=== PATIENT | male | born 1945 | race Caucasian/White ===

== ENCOUNTER 2021-09-14 16:11 | Inpatient (IN) ==
[2021-09-14] MEDS ORDERED: Dextrose 4 GM Chewable Tablets PO PRN ×2 (16:15)
[2021-09-14] MEDS ORDERED: *HR* Dextrose 50 % in Water (Syg) 50 ML SYRINGE IVP PRN (16:15)
[2021-09-14] MEDS ORDERED: D5% in Water 1,000 ML IVC PRN (16:15)
[2021-09-14] MEDS ORDERED: Diphenoxylate/Atropine 1 TAB TABLET PO PRN (16:16)
[2021-09-14] MEDS: *HR* HYDROcodone/Acet 5/325 mg TABLET PO PRN (21:31)
[2021-09-14] MEDS: Sennosides/Docusate Sodium TABLET PO SCH (21:31)
[2021-09-14] MEDS: Insulin LISPRO 300 UNITS/3 ML VIAL SUBQ SCH ×2 (21:32→21:51)
[2021-09-14] MEDS: Budesonide/Formoterol 160/4.5 1 PUFF INH IH SCH (23:07)
[2021-09-15] MEDS: Ondansetron ODT 4 MG TAB.RAPDIS SL PRN (06:12)
[2021-09-15] MEDS: Insulin LISPRO 300 UNITS/3 ML VIAL SUBQ SCH ×4 (07:29→21:25)
[2021-09-15 07:45] LABS: Basophils # 0.1 K/mcL (0.0-0.2); Basophils % 0.4 %; Eosinophils # 0.4 K/mcL (0.0-0.6); Eosinophils % 2.6 %; Hemoglobin 7.7 g/dL (12.9-16.9); Immature Granulocytes % 2.6 % (0-4); Lymphocytes # 0.9 K/mcL (0.6-4.6); Lymphocytes % 6.8 %; Mean Corpuscular HGB Conc 30.8 g/dL (31.6-35.5); Mean Corpuscular Hemoglobin 29.2 pg (28.0-33.3); Mean Corpuscular Volume 94.7 fL (83.0-100.0); Mean Platelet Volume 10.9 fL (9.4-12.4); Monocytes # 2.4 K/mcL (0.0-1.3); Monocytes % 17.8 %; Neutrophils # 9.5 K/mcL (1.6-8.9); Platelet Count 229 K/mcL (140-400); Red Blood Count 2.64 M/mcL (4.19-5.50); Red Cell Distribution Width 15.2 % (11.5-14.5); Segmented Neutrophils % 69.8 %; White Blood Count 13.6 K/mcL (4.3-11.1)
[2021-09-15 08:01] LABS: Calcium 8.2 mg/dL (8.6-10.3); Potassium 3.7 mEq/L (3.5-5.1)
[2021-09-15] MEDS: Ascorbic Acid 500 MG TABLET PO SCH (09:23)
[2021-09-15] MEDS: Lactobacillus 1 EACH CAP.SPRINK PO SCH (09:23)
[2021-09-15] MEDS: Sennosides/Docusate Sodium TABLET PO SCH ×2 (09:23→21:25)
[2021-09-15] MEDS: Furosemide 40 MG TABLET PO SCH (09:23)
[2021-09-15] MEDS: Budesonide/Formoterol 160/4.5 1 PUFF INH IH SCH ×2 (09:39→23:26)
[2021-09-15] MEDS: *HR* HYDROcodone/Acet 5/325 mg TABLET PO PRN ×2 (17:54→23:49)
[2021-09-16] MEDS: Acetaminophen 325 MG TABLET PO PRN (03:08)
[2021-09-16] MEDS: *HR* HYDROcodone/Acet 5/325 mg TABLET PO PRN ×3 (06:19→21:51)
[2021-09-16] MEDS: Insulin LISPRO 300 UNITS/3 ML VIAL SUBQ SCH ×4 (07:33→21:59)
[2021-09-16] MEDS: Sennosides/Docusate Sodium TABLET PO SCH ×2 (08:07→20:21)
[2021-09-16] MEDS: Lactobacillus 1 EACH CAP.SPRINK PO SCH (08:07)
[2021-09-16] MEDS: Ascorbic Acid 500 MG TABLET PO SCH (08:08)
[2021-09-16] MEDS: Furosemide 40 MG TABLET PO SCH (08:08)
[2021-09-16] MEDS: Budesonide/Formoterol 160/4.5 1 PUFF INH IH SCH ×2 (08:39→22:24)
[2021-09-17] MEDS: Acetaminophen 325 MG TABLET PO PRN ×3 (00:40→14:18)
[2021-09-17] MEDS: *HR* HYDROcodone/Acet 5/325 mg TABLET PO PRN ×3 (04:08→17:03)
[2021-09-17] MEDS: Ascorbic Acid 500 MG TABLET PO SCH (07:37)
[2021-09-17] MEDS: Sennosides/Docusate Sodium TABLET PO SCH ×2 (07:37→20:00)
[2021-09-17] MEDS: Lactobacillus 1 EACH CAP.SPRINK PO SCH (07:37)
[2021-09-17] MEDS: Furosemide 40 MG TABLET PO SCH (07:37)
[2021-09-17] MEDS: Insulin LISPRO 300 UNITS/3 ML VIAL SUBQ SCH ×4 (07:38→20:00)
[2021-09-17] MEDS: Ondansetron ODT 4 MG TAB.RAPDIS SL PRN (09:44)
[2021-09-17] MEDS: Budesonide/Formoterol 160/4.5 1 PUFF INH IH SCH ×2 (10:17→22:36)
[2021-09-17] MEDS: Melatonin 3 MG TABLET PO PRN (20:12)
[2021-09-18] MEDS: *HR* HYDROcodone/Acet 5/325 mg TABLET PO PRN ×2 (05:35→15:45)
[2021-09-18] MEDS: Insulin LISPRO 300 UNITS/3 ML VIAL SUBQ SCH ×4 (07:41→20:17)
[2021-09-18 07:52] LABS: Hematocrit 22.8 % (37.5-50.1); Hemoglobin 6.8 g/dL (12.9-16.9); Mean Corpuscular HGB Conc 29.8 g/dL (31.6-35.5); Mean Corpuscular Hemoglobin 28.9 pg (28.0-33.3); Mean Platelet Volume 10.3 fL (9.4-12.4); Platelet Count 224 K/mcL (140-400); Red Blood Count 2.35 M/mcL (4.19-5.50); Red Cell Distribution Width 15.2 % (11.5-14.5); White Blood Count 11.6 K/mcL (4.3-11.1)
[2021-09-18 07:53] LABS: Calcium 8.2 mg/dL (8.6-10.3); Potassium 3.3 mEq/L (3.5-5.1)
[2021-09-18] MEDS ORDERED: Potassium Chloride Elixir 20 MEQ/15 ML UDC PO ONE (08:23)
[2021-09-18] MEDS ORDERED: 0.9 % Sodium Chloride 250 ML IVC SCH (08:30)
[2021-09-18] MEDS: Gabapentin 100 MG CAPSULE PO SCH ×3 (08:53→20:16)
[2021-09-18] MEDS: Ascorbic Acid 500 MG TABLET PO SCH (08:53)
[2021-09-18] MEDS: Lactobacillus 1 EACH CAP.SPRINK PO SCH (08:53)
[2021-09-18] MEDS: Nystatin SUSP 5 ML UD.LIQ PO SCH ×4 (08:54→20:16)
[2021-09-18] MEDS: Furosemide 40 MG TABLET PO SCH (09:00)
[2021-09-18] MEDS: Sennosides/Docusate Sodium TABLET PO SCH ×2 (09:02→20:16)
[2021-09-18] MEDS: Budesonide/Formoterol 160/4.5 1 PUFF INH IH SCH ×2 (09:49→22:35)
[2021-09-19 07:17] LABS: Basophils # 0.1 K/mcL (0.0-0.2); Eosinophils # 0.3 K/mcL (0.0-0.6); Eosinophils % 2.7 %; Hematocrit 27.1 % (37.5-50.1); Hemoglobin 8.2 g/dL (12.9-16.9); Immature Granulocytes % 1.7 % (0-4); Lymphocytes # 0.8 K/mcL (0.6-4.6); Lymphocytes % 7.6 %; Mean Corpuscular HGB Conc 30.3 g/dL (31.6-35.5); Mean Corpuscular Volume 95.8 fL (83.0-100.0); Mean Platelet Volume 10.2 fL (9.4-12.4); Monocytes # 2.5 K/mcL (0.0-1.3); Monocytes % 23.8 %; Neutrophils # 6.7 K/mcL (1.6-8.9); Platelet Count 246 K/mcL (140-400); Red Blood Count 2.83 M/mcL (4.19-5.50); Red Cell Distribution Width 15.8 % (11.5-14.5); Segmented Neutrophils % 63.2 %; White Blood Count 10.5 K/mcL (4.3-11.1)
[2021-09-19] MEDS: Ascorbic Acid 500 MG TABLET PO SCH (08:21)
[2021-09-19] MEDS: Acetaminophen 325 MG TABLET PO PRN (08:22)
[2021-09-19] MEDS: Sennosides/Docusate Sodium TABLET PO SCH ×2 (08:22→20:14)
[2021-09-19] MEDS: Furosemide 40 MG TABLET PO SCH (08:22)
[2021-09-19] MEDS: Gabapentin 100 MG CAPSULE PO SCH ×3 (08:23→20:13)
[2021-09-19] MEDS: Insulin LISPRO 300 UNITS/3 ML VIAL SUBQ SCH (08:23)
[2021-09-19] MEDS: Lactobacillus 1 EACH CAP.SPRINK PO SCH (08:23)
[2021-09-19 09:06] LABS: Platelet Estimate Normal (Normal)
[2021-09-19] MEDS: Budesonide/Formoterol 160/4.5 1 PUFF INH IH SCH ×2 (09:22→21:46)
[2021-09-19] MEDS: Nystatin SUSP 5 ML UD.LIQ PO SCH ×4 (11:41→20:15)
[2021-09-19] MEDS: Melatonin 3 MG TABLET PO PRN (20:13)
[2021-09-19] MEDS: *HR* HYDROcodone/Acet 5/325 mg TABLET PO PRN (20:14)
[2021-09-20 07:34] LABS: Basophils # 0.1 K/mcL (0.0-0.2); Basophils % 1.1 %; Eosinophils # 0.3 K/mcL (0.0-0.6); Eosinophils % 2.3 %; Hematocrit 26.2 % (37.5-50.1); Immature Granulocytes % 1.8 % (0-4); Lymphocytes # 0.9 K/mcL (0.6-4.6); Lymphocytes % 8.7 %; Mean Corpuscular HGB Conc 30.5 g/dL (31.6-35.5); Mean Corpuscular Hemoglobin 29.5 pg (28.0-33.3); Mean Corpuscular Volume 96.7 fL (83.0-100.0); Mean Platelet Volume 10.2 fL (9.4-12.4); Monocytes # 2.2 K/mcL (0.0-1.3); Monocytes % 20.4 %; Neutrophils # 7.1 K/mcL (1.6-8.9); Platelet Count 252 K/mcL (140-400); Red Blood Count 2.71 M/mcL (4.19-5.50); Red Cell Distribution Width 15.5 % (11.5-14.5); Segmented Neutrophils % 65.7 %; White Blood Count 10.8 K/mcL (4.3-11.1)
[2021-09-20 07:55] LABS: Calcium 8.2 mg/dL (8.6-10.3); Potassium 3.4 mEq/L (3.5-5.1)
[2021-09-20 08:23] LABS: Platelet Estimate Normal (Normal)
[2021-09-20] MEDS: Lactobacillus 1 EACH CAP.SPRINK PO SCH (09:35)
[2021-09-20] MEDS: Sennosides/Docusate Sodium TABLET PO SCH ×2 (09:35→20:40)
[2021-09-20] MEDS: Ascorbic Acid 500 MG TABLET PO SCH (09:35)
[2021-09-20] MEDS: Gabapentin 100 MG CAPSULE PO SCH ×3 (09:35→20:40)
[2021-09-20] MEDS: Furosemide 40 MG TABLET PO SCH (09:35)
[2021-09-20] MEDS: Nystatin SUSP 5 ML UD.LIQ PO SCH ×4 (09:36→20:40)
[2021-09-20] MEDS: *HR* HYDROcodone/Acet 5/325 mg TABLET PO PRN ×2 (09:45→22:13)
[2021-09-20] MEDS: Budesonide/Formoterol 160/4.5 1 PUFF INH IH SCH ×2 (09:52→21:27)
[2021-09-20] MEDS ORDERED: 0.9 % Sodium Chloride 250 ML IVC SCH (15:15)
[2021-09-20] MEDS: Acetaminophen 325 MG TABLET PO PRN (16:22)
[2021-09-20] MEDS ORDERED: Furosemide 20 MG/2 ML VIAL IVP PRN (17:00)
[2021-09-21 06:36] LABS: Hemoglobin 8.6 g/dL (12.9-16.9); Mean Corpuscular HGB Conc 30.7 g/dL (31.6-35.5); Mean Corpuscular Hemoglobin 29.6 pg (28.0-33.3); Mean Corpuscular Volume 96.2 fL (83.0-100.0); Mean Platelet Volume 10.3 fL (9.4-12.4); Platelet Count 267 K/mcL (140-400); Red Blood Count 2.91 M/mcL (4.19-5.50); Red Cell Distribution Width 15.6 % (11.5-14.5); White Blood Count 11.4 K/mcL (4.3-11.1)
[2021-09-21 06:59] LABS: Calcium 8.1 mg/dL (8.6-10.3); Potassium 3.6 mEq/L (3.5-5.1)
[2021-09-21] MEDS: Sennosides/Docusate Sodium TABLET PO SCH ×2 (08:51→20:31)
[2021-09-21] MEDS: Nystatin SUSP 5 ML UD.LIQ PO SCH ×4 (08:51→20:31)
[2021-09-21] MEDS: Ascorbic Acid 500 MG TABLET PO SCH (08:52)
[2021-09-21] MEDS: Lactobacillus 1 EACH CAP.SPRINK PO SCH (08:52)
[2021-09-21] MEDS: Furosemide 40 MG TABLET PO SCH (08:52)
[2021-09-21] MEDS: Gabapentin 100 MG CAPSULE PO SCH ×3 (08:52→20:31)
[2021-09-21] MEDS: *HR* HYDROcodone/Acet 5/325 mg TABLET PO PRN (08:53)
[2021-09-21] MEDS: Budesonide/Formoterol 160/4.5 1 PUFF INH IH SCH ×2 (10:14→22:36)
[2021-09-21 11:47] LABS: Bilirubin,Urine Negative (Negative); Blood,Urine Moderate (Negative); Clarity,Urine Cloudy (Clear); Color,Urine Yellow (Yellow); Glucose,Urine (UA) 100 mg/dL (Normal); Ketones,Urine Negative (Negative); Leukocyte Esterase,Urine Large (Negative); Nitrite,Urine Negative (Negative); Protein,Urine 100 mg/dL (Neg-Trace); Urobilinogen,Urine Normal (Normal)
[2021-09-21 11:54] LABS: Bacteria,Urine Few per hpf (None-Few); WBC,Urine 15-30 per hpf (0-3)
[2021-09-21] MEDS: polyethylene glycoL 3350 17 GM POWD.PACK PO SCH (15:17)
[2021-09-21] MEDS: cefTRIAXone 1,000 MG in 0.9 % Sodium Chloride 10 ML IVP SCH ×2 (15:20→16:59)
[2021-09-21] MEDS: *HR* OxyCODONE/APAP 7.5/325 TABLET PO PRN (18:34)
[2021-09-21 20:24] LABS: Basophils # 0.1 K/mcL (0.0-0.2); Basophils % 0.8 %; Eosinophils # 0.3 K/mcL (0.0-0.6); Hematocrit 28.5 % (37.5-50.1); Hemoglobin 8.7 g/dL (12.9-16.9); Immature Granulocytes % 1.4 % (0-4); Lymphocytes # 0.6 K/mcL (0.6-4.6); Mean Corpuscular HGB Conc 30.5 g/dL (31.6-35.5); Mean Corpuscular Hemoglobin 29.2 pg (28.0-33.3); Mean Corpuscular Volume 95.6 fL (83.0-100.0); Mean Platelet Volume 9.9 fL (9.4-12.4); Monocytes # 0.9 K/mcL (0.0-1.3); Monocytes % 9.8 %; Neutrophils # 7.4 K/mcL (1.6-8.9); Platelet Count 247 K/mcL (140-400); Red Blood Count 2.98 M/mcL (4.19-5.50); Red Cell Distribution Width 15.3 % (11.5-14.5); White Blood Count 9.3 K/mcL (4.3-11.1)
[2021-09-22] MEDS: polyethylene glycoL 3350 17 GM POWD.PACK PO SCH ×2 (09:02→10:02)
[2021-09-22] MEDS: cefTRIAXone 1,000 MG in 0.9 % Sodium Chloride 10 ML IVP SCH (09:03)
[2021-09-22] MEDS: *HR* OxyCODONE/APAP 7.5/325 TABLET PO PRN ×2 (09:04→20:28)
[2021-09-22] MEDS: Lactobacillus 1 EACH CAP.SPRINK PO SCH (09:04)
[2021-09-22] MEDS: Sennosides/Docusate Sodium TABLET PO SCH ×2 (09:04→20:29)
[2021-09-22] MEDS: Nystatin SUSP 5 ML UD.LIQ PO SCH ×4 (09:04→20:29)
[2021-09-22] MEDS: Gabapentin 100 MG CAPSULE PO SCH ×3 (09:04→20:28)
[2021-09-22] MEDS: Furosemide 40 MG TABLET PO SCH (09:04)
[2021-09-22] MEDS: Ascorbic Acid 500 MG TABLET PO SCH (09:05)
[2021-09-22 09:26] LABS: Hematocrit 31.1 % (37.5-50.1); Hemoglobin 9.1 g/dL (12.9-16.9); Mean Corpuscular HGB Conc 29.3 g/dL (31.6-35.5); Mean Corpuscular Hemoglobin 29.2 pg (28.0-33.3); Mean Corpuscular Volume 99.7 fL (83.0-100.0); Mean Platelet Volume 10.5 fL (9.4-12.4); Platelet Count 244 K/mcL (140-400); Red Blood Count 3.12 M/mcL (4.19-5.50); Red Cell Distribution Width 15.5 % (11.5-14.5); White Blood Count 10.2 K/mcL (4.3-11.1)
[2021-09-22] MEDS: Budesonide/Formoterol 160/4.5 1 PUFF INH IH SCH ×2 (11:03→22:24)
[2021-09-22 19:31] LABS: Hematocrit 33.3 % (37.5-50.1); Hemoglobin 9.9 g/dL (12.9-16.9)
[2021-09-23] MEDS: *HR* OxyCODONE/APAP 7.5/325 TABLET PO PRN (06:30)
[2021-09-23 06:42] LABS: Hematocrit 30.7 % (37.5-50.1)
[2021-09-23] MEDS: Nystatin SUSP 5 ML UD.LIQ PO SCH ×4 (08:22→20:24)
[2021-09-23] MEDS: Gabapentin 100 MG CAPSULE PO SCH ×3 (08:23→20:22)
[2021-09-23] MEDS: Ascorbic Acid 500 MG TABLET PO SCH (08:23)
[2021-09-23] MEDS: Lactobacillus 1 EACH CAP.SPRINK PO SCH (08:23)
[2021-09-23] MEDS: Furosemide 40 MG TABLET PO SCH (08:23)
[2021-09-23] MEDS: cefTRIAXone 1,000 MG in 0.9 % Sodium Chloride 10 ML IVP SCH (08:25)
[2021-09-23] MEDS: polyethylene glycoL 3350 17 GM POWD.PACK PO SCH (08:26)
[2021-09-23] MEDS: Sennosides/Docusate Sodium TABLET PO SCH ×2 (08:26→20:56)
[2021-09-23] MEDS: Budesonide/Formoterol 160/4.5 1 PUFF INH IH SCH ×2 (09:50→22:30)
[2021-09-23 10:05] LABS: Basophils # 0.2 K/mcL (0.0-0.2); Basophils % 1.2 %; Eosinophils # 0.7 K/mcL (0.0-0.6); Eosinophils % 5.4 %; Hematocrit 28.8 % (37.5-50.1); Hemoglobin 8.5 g/dL (12.9-16.9); Immature Granulocytes % 1.1 % (0-4); Lymphocytes # 0.9 K/mcL (0.6-4.6); Lymphocytes % 7.7 %; Mean Corpuscular HGB Conc 29.5 g/dL (31.6-35.5); Mean Corpuscular Hemoglobin 29.1 pg (28.0-33.3); Mean Corpuscular Volume 98.6 fL (83.0-100.0); Mean Platelet Volume 10.4 fL (9.4-12.4); Monocytes # 1.7 K/mcL (0.0-1.3); Monocytes % 13.8 %; Platelet Count 216 K/mcL (140-400); Red Blood Count 2.92 M/mcL (4.19-5.50); Red Cell Distribution Width 15.5 % (11.5-14.5); Segmented Neutrophils % 70.8 %; White Blood Count 12.2 K/mcL (4.3-11.1)
[2021-09-23 10:17] LABS: Calcium 7.9 mg/dL (8.6-10.3); Potassium 3.8 mEq/L (3.5-5.1)
[2021-09-23 10:19] LABS: Neutrophils # 8.6 K/mcL (1.6-8.9)
[2021-09-23 18:11] LABS: Hematocrit 30.4 % (37.5-50.1); Hemoglobin 8.8 g/dL (12.9-16.9)
[2021-09-24 07:47] LABS: Basophils # 0.1 K/mcL (0.0-0.2); Basophils % 1.1 %; Eosinophils # 0.7 K/mcL (0.0-0.6); Eosinophils % 5.9 %; Hematocrit 26.9 % (37.5-50.1); Hemoglobin 8.2 g/dL (12.9-16.9); Immature Granulocytes % 1.1 % (0-4); Lymphocytes % 8.5 %; Mean Corpuscular HGB Conc 30.5 g/dL (31.6-35.5); Mean Corpuscular Hemoglobin 29.3 pg (28.0-33.3); Mean Corpuscular Volume 96.1 fL (83.0-100.0); Mean Platelet Volume 10.3 fL (9.4-12.4); Monocytes # 1.2 K/mcL (0.0-1.3); Monocytes % 10.2 %; Platelet Count 197 K/mcL (140-400); Red Cell Distribution Width 15.3 % (11.5-14.5); Segmented Neutrophils % 73.2 %; White Blood Count 11.4 K/mcL (4.3-11.1)
[2021-09-24 07:48] LABS: Neutrophils # 8.3 K/mcL (1.6-8.9)
[2021-09-24 08:01] LABS: Calcium 8.2 mg/dL (8.6-10.3); Potassium 3.7 mEq/L (3.5-5.1)
[2021-09-24] MEDS: Budesonide/Formoterol 160/4.5 1 PUFF INH IH SCH ×2 (08:20→22:19)
[2021-09-24] MEDS: Ascorbic Acid 500 MG TABLET PO SCH (10:30)
[2021-09-24] MEDS: Nystatin SUSP 5 ML UD.LIQ PO SCH ×4 (10:30→21:01)
[2021-09-24] MEDS: Lactobacillus 1 EACH CAP.SPRINK PO SCH (10:30)
[2021-09-24] MEDS: Gabapentin 100 MG CAPSULE PO SCH ×3 (10:30→21:01)
[2021-09-24] MEDS: cefTRIAXone 1,000 MG in 0.9 % Sodium Chloride 10 ML IVP SCH (10:32)
[2021-09-24] MEDS: polyethylene glycoL 3350 17 GM POWD.PACK PO SCH (10:32)
[2021-09-24] MEDS: Sennosides/Docusate Sodium TABLET PO SCH ×2 (10:33→21:01)
[2021-09-24 18:01] LABS: Hematocrit 25.1 % (37.5-50.1); Hemoglobin 7.5 g/dL (12.9-16.9)
[2021-09-24] MEDS ORDERED: 0.9 % Sodium Chloride 250 ML IVC SCH (19:00)
[2021-09-25] MEDS: *HR* OxyCODONE/APAP 7.5/325 TABLET PO PRN ×2 (00:18→18:43)
[2021-09-25 04:37] LABS: Hematocrit 28.7 % (37.5-50.1); Mean Corpuscular HGB Conc 30.7 g/dL (31.6-35.5); Mean Corpuscular Hemoglobin 28.7 pg (28.0-33.3); Mean Corpuscular Volume 93.5 fL (83.0-100.0); Mean Platelet Volume 10.1 fL (9.4-12.4); Platelet Count 171 K/mcL (140-400); Red Blood Count 3.07 M/mcL (4.19-5.50); Red Cell Distribution Width 16.6 % (11.5-14.5); White Blood Count 9.1 K/mcL (4.3-11.1)
[2021-09-25 04:39] LABS: Hemoglobin 8.8 g/dL (12.9-16.9)
[2021-09-25 05:58] LABS: Potassium 3.6 mEq/L (3.5-5.1)
[2021-09-25] MEDS: Sennosides/Docusate Sodium TABLET PO SCH ×2 (08:06→22:37)
[2021-09-25] MEDS: Ascorbic Acid 500 MG TABLET PO SCH (08:07)
[2021-09-25] MEDS: Lactobacillus 1 EACH CAP.SPRINK PO SCH (08:07)
[2021-09-25] MEDS: Gabapentin 100 MG CAPSULE PO SCH ×3 (08:07→21:26)
[2021-09-25] MEDS: Nystatin SUSP 5 ML UD.LIQ PO SCH ×4 (08:08→21:26)
[2021-09-25] MEDS: polyethylene glycoL 3350 17 GM POWD.PACK PO SCH (08:09)
[2021-09-25] MEDS: cefTRIAXone 1,000 MG in 0.9 % Sodium Chloride 10 ML IVP SCH (08:13)
[2021-09-25] MEDS: Budesonide/Formoterol 160/4.5 1 PUFF INH IH SCH ×2 (09:13→21:31)
[2021-09-25 21:20] LABS: Hematocrit 27.7 % (37.5-50.1); Hemoglobin 8.7 g/dL (12.9-16.9)
[2021-09-26 07:14] LABS: Hematocrit 29.8 % (37.5-50.1); Hemoglobin 9.1 g/dL (12.9-16.9); Mean Corpuscular HGB Conc 30.5 g/dL (31.6-35.5); Mean Corpuscular Hemoglobin 28.4 pg (28.0-33.3); Mean Corpuscular Volume 93.1 fL (83.0-100.0); Mean Platelet Volume 10.7 fL (9.4-12.4); Platelet Count 181 K/mcL (140-400); Red Cell Distribution Width 16.1 % (11.5-14.5); White Blood Count 8.8 K/mcL (4.3-11.1)
[2021-09-26 07:38] LABS: BUN/Creatinine Ratio 19 (6-26); Blood Urea Nitrogen 24 mg/dL (8-23); Calcium 8.2 mg/dL (8.6-10.3); Carbon Dioxide 33 mEq/L (23-29); Chloride 98 mEq/L (98-107); Glucose 206 mg/dL (70-105); Osmolality,Calculated 292 (280-300); Potassium 3.7 mEq/L (3.5-5.1); Sodium 136 mEq/L (136-145); eGFR For African Americans > 60 (> 60); eGFR For Non-African Americans 56 (> 60)
[2021-09-26] MEDS: Nystatin SUSP 5 ML UD.LIQ PO SCH ×4 (08:20→20:24)
[2021-09-26] MEDS: Sennosides/Docusate Sodium TABLET PO SCH ×2 (08:21→22:08)
[2021-09-26] MEDS: Ascorbic Acid 500 MG TABLET PO SCH (08:21)
[2021-09-26] MEDS: Lactobacillus 1 EACH CAP.SPRINK PO SCH (08:22)
[2021-09-26] MEDS: Gabapentin 100 MG CAPSULE PO SCH ×3 (08:22→20:25)
[2021-09-26] MEDS: Furosemide 40 MG TABLET PO SCH ×2 (08:23→22:29)
[2021-09-26] MEDS: polyethylene glycoL 3350 17 GM POWD.PACK PO SCH (08:23)
[2021-09-26] MEDS: cefTRIAXone 1,000 MG in 0.9 % Sodium Chloride 10 ML IVP SCH (08:27)
[2021-09-26] MEDS: Budesonide/Formoterol 160/4.5 1 PUFF INH IH SCH ×2 (10:16→22:06)
[2021-09-26] MEDS: *HR* OxyCODONE/APAP 7.5/325 TABLET PO PRN (20:24)
[2021-09-27] MEDS: *HR* OxyCODONE/APAP 7.5/325 TABLET PO PRN (05:25)
[2021-09-27] MEDS: Sennosides/Docusate Sodium TABLET PO SCH ×2 (09:18→21:02)
[2021-09-27] MEDS: Gabapentin 100 MG CAPSULE PO SCH ×3 (09:19→21:02)
[2021-09-27] MEDS: Ascorbic Acid 500 MG TABLET PO SCH (09:19)
[2021-09-27] MEDS: Furosemide 40 MG TABLET PO SCH (09:20)
[2021-09-27] MEDS: Lactobacillus 1 EACH CAP.SPRINK PO SCH (09:21)
[2021-09-27] MEDS: Nystatin SUSP 5 ML UD.LIQ PO SCH ×4 (09:21→21:03)
[2021-09-27] MEDS: polyethylene glycoL 3350 17 GM POWD.PACK PO SCH (09:22)
[2021-09-27] MEDS: cefTRIAXone 1,000 MG in 0.9 % Sodium Chloride 10 ML IVP SCH (09:26)
[2021-09-27] MEDS: Budesonide/Formoterol 160/4.5 1 PUFF INH IH SCH ×2 (12:02→22:44)
[2021-09-28] MEDS: Budesonide/Formoterol 160/4.5 1 PUFF INH IH SCH ×2 (10:01→22:22)
[2021-09-28] MEDS: cefTRIAXone 1,000 MG in 0.9 % Sodium Chloride 10 ML IVP SCH (11:47)
[2021-09-28] MEDS: Furosemide 40 MG TABLET PO SCH (11:47)
[2021-09-28] MEDS: Nystatin SUSP 5 ML UD.LIQ PO SCH ×4 (11:47→20:05)
[2021-09-28] MEDS: polyethylene glycoL 3350 17 GM POWD.PACK PO SCH (11:47)
[2021-09-28] MEDS: Gabapentin 100 MG CAPSULE PO SCH ×3 (11:47→20:06)
[2021-09-28] MEDS: Lactobacillus 1 EACH CAP.SPRINK PO SCH (11:47)
[2021-09-28] MEDS: Sennosides/Docusate Sodium TABLET PO SCH ×2 (11:48→20:06)
[2021-09-28] MEDS: *HR* OxyCODONE/APAP 7.5/325 TABLET PO PRN (20:05)
[2021-09-29 08:20] LABS: Basophils # 0.1 K/mcL (0.0-0.2); Basophils % 1.4 %; Eosinophils # 0.7 K/mcL (0.0-0.6); Eosinophils % 9.2 %; Hematocrit 29.6 % (37.5-50.1); Hemoglobin 9.3 g/dL (12.9-16.9); Immature Granulocytes % 1.6 % (0-4); Lymphocytes # 0.9 K/mcL (0.6-4.6); Lymphocytes % 11.6 %; Mean Corpuscular HGB Conc 31.4 g/dL (31.6-35.5); Mean Corpuscular Hemoglobin 28.7 pg (28.0-33.3); Mean Corpuscular Volume 91.4 fL (83.0-100.0); Monocytes # 1.2 K/mcL (0.0-1.3); Monocytes % 14.7 %; Neutrophils # 4.9 K/mcL (1.6-8.9); Platelet Count 323 K/mcL (140-400); Red Blood Count 3.24 M/mcL (4.19-5.50); Red Cell Distribution Width 15.2 % (11.5-14.5); Segmented Neutrophils % 61.5 %
[2021-09-29 08:41] LABS: Alanine Aminotransferase 151 Units/L (7-52); Albumin 2.8 g/dL (3.5-5.7); Albumin/Globulin Ratio 1.2 (1.1-2.2); Alkaline Phosphatase 149 Units/L (34-104); Aspartate Amino Transferase 144 Units/L (13-39); BUN/Creatinine Ratio 15 (6-26); Bilirubin,Total 0.5 mg/dL (0.3-1.0); Blood Urea Nitrogen 13 mg/dL (8-23); Calcium 8.4 mg/dL (8.6-10.3); Carbon Dioxide 28 mEq/L (23-29); Chloride 100 mEq/L (98-107); Creatine Kinase 38 Units/L (30-223); Globulin 2.4 g/dL (2.4-3.5); Glucose 161 mg/dL (70-105); Osmolality,Calculated 282 (280-300); Potassium 3.8 mEq/L (3.5-5.1); Sodium 134 mEq/L (136-145); Total Protein 5.2 g/dL (6.4-8.9); eGFR For African Americans > 60 (> 60); eGFR For Non-African Americans > 60 (> 60)
[2021-09-29] MEDS: Budesonide/Formoterol 160/4.5 1 PUFF INH IH SCH ×2 (09:27→22:40)
[2021-09-29] MEDS: Nystatin SUSP 5 ML UD.LIQ PO SCH ×4 (10:10→22:04)
[2021-09-29] MEDS: cefTRIAXone 1,000 MG in 0.9 % Sodium Chloride 10 ML IVP SCH (10:10)
[2021-09-29] MEDS: Furosemide 40 MG TABLET PO SCH (10:11)
[2021-09-29] MEDS: Lactobacillus 1 EACH CAP.SPRINK PO SCH (10:11)
[2021-09-29] MEDS: Ascorbic Acid 500 MG TABLET PO SCH (10:11)
[2021-09-29] MEDS: Sennosides/Docusate Sodium TABLET PO SCH ×2 (10:11→21:54)
[2021-09-29] MEDS: polyethylene glycoL 3350 17 GM POWD.PACK PO SCH (10:12)
[2021-09-29] MEDS: Gabapentin 100 MG CAPSULE PO SCH ×3 (10:12→21:55)
[2021-09-29] MEDS: *HR* OxyCODONE/APAP 7.5/325 TABLET PO PRN (18:24)
[2021-09-29] MEDS: Melatonin 3 MG TABLET PO PRN (21:54)
[2021-09-30] MEDS: *HR* OxyCODONE/APAP 7.5/325 TABLET PO PRN ×3 (04:33→19:08)
[2021-09-30] MEDS: polyethylene glycoL 3350 17 GM POWD.PACK PO SCH (09:11)
[2021-09-30] MEDS: Sennosides/Docusate Sodium TABLET PO SCH ×2 (09:13→19:09)
[2021-09-30] MEDS: Nystatin SUSP 5 ML UD.LIQ PO SCH ×4 (09:13→19:09)
[2021-09-30] MEDS: Lactobacillus 1 EACH CAP.SPRINK PO SCH (09:14)
[2021-09-30] MEDS: Gabapentin 100 MG CAPSULE PO SCH ×3 (09:15→19:09)
[2021-09-30] MEDS: Furosemide 40 MG TABLET PO SCH (09:15)
[2021-09-30] MEDS: Ascorbic Acid 500 MG TABLET PO SCH (09:15)
[2021-09-30] MEDS: cefTRIAXone 1,000 MG in 0.9 % Sodium Chloride 10 ML IVP SCH (09:17)
[2021-09-30] MEDS: Budesonide/Formoterol 160/4.5 1 PUFF INH IH SCH ×2 (09:49→22:34)
[2021-09-30] MEDS: Melatonin 3 MG TABLET PO PRN (20:56)
[2021-09-30] MEDS: Acetaminophen 325 MG TABLET PO PRN (20:56)
[2021-10-01] MEDS: cefTRIAXone 1,000 MG in 0.9 % Sodium Chloride 10 ML IVP SCH (08:48)
[2021-10-01] MEDS: Nystatin SUSP 5 ML UD.LIQ PO SCH ×5 (08:49→19:46)
[2021-10-01] MEDS: Gabapentin 100 MG CAPSULE PO SCH ×3 (08:49→19:48)
[2021-10-01] MEDS: polyethylene glycoL 3350 17 GM POWD.PACK PO SCH (08:49)
[2021-10-01] MEDS: Sennosides/Docusate Sodium TABLET PO SCH ×2 (08:50→19:47)
[2021-10-01] MEDS: Furosemide 40 MG TABLET PO SCH (08:50)
[2021-10-01] MEDS: Ascorbic Acid 500 MG TABLET PO SCH (08:50)
[2021-10-01] MEDS: Lactobacillus 1 EACH CAP.SPRINK PO SCH (08:50)
[2021-10-01] MEDS: Budesonide/Formoterol 160/4.5 1 PUFF INH IH SCH ×2 (09:58→22:26)
[2021-10-01] MEDS: *HR* OxyCODONE/APAP 7.5/325 TABLET PO PRN (11:59)
[2021-10-01 12:33] LABS: Basophils # 0.1 K/mcL (0.0-0.2); Basophils % 1.4 %; Eosinophils # 0.7 K/mcL (0.0-0.6); Eosinophils % 8.8 %; Hematocrit 31.8 % (37.5-50.1); Hemoglobin 9.9 g/dL (12.9-16.9); Lymphocytes # 0.9 K/mcL (0.6-4.6); Lymphocytes % 11.9 %; Mean Corpuscular HGB Conc 31.1 g/dL (31.6-35.5); Mean Corpuscular Hemoglobin 28.8 pg (28.0-33.3); Mean Corpuscular Volume 92.4 fL (83.0-100.0); Mean Platelet Volume 9.7 fL (9.4-12.4); Monocytes # 1.2 K/mcL (0.0-1.3); Monocytes % 15.5 %; Neutrophils # 4.8 K/mcL (1.6-8.9); Platelet Count 381 K/mcL (140-400); Red Blood Count 3.44 M/mcL (4.19-5.50); Segmented Neutrophils % 61.4 %; White Blood Count 7.8 K/mcL (4.3-11.1)
[2021-10-01 12:49] LABS: Alanine Aminotransferase 123 Units/L (7-52); Albumin/Globulin Ratio 1.3 (1.1-2.2); Alkaline Phosphatase 153 Units/L (34-104); Aspartate Amino Transferase 95 Units/L (13-39); BUN/Creatinine Ratio 25 (6-26); Bilirubin,Total 0.4 mg/dL (0.3-1.0); Blood Urea Nitrogen 19 mg/dL (8-23); Calcium 8.6 mg/dL (8.6-10.3); Carbon Dioxide 27 mEq/L (23-29); Chloride 100 mEq/L (98-107); Globulin 2.4 g/dL (2.4-3.5); Glucose 169 mg/dL (70-105); Magnesium 1.6 mg/dL (1.6-2.6); Osmolality,Calculated 282 (280-300); Potassium 4.5 mEq/L (3.5-5.1); Sodium 133 mEq/L (136-145); Total Protein 5.4 g/dL (6.4-8.9); eGFR For African Americans > 60 (> 60); eGFR For Non-African Americans > 60 (> 60)
[2021-10-01 12:53] LABS: Troponin I < 0.03 ng/mL (< 0.04)
[2021-10-01] MEDS: Melatonin 3 MG TABLET PO PRN (22:05)
[2021-10-01] MEDS: Acetaminophen 325 MG TABLET PO PRN (22:06)
[2021-10-02] MEDS: *HR* OxyCODONE/APAP 7.5/325 TABLET PO PRN ×2 (08:15→17:53)
[2021-10-02] MEDS: Sennosides/Docusate Sodium TABLET PO SCH ×2 (08:15→20:31)
[2021-10-02] MEDS: Ascorbic Acid 500 MG TABLET PO SCH (08:15)
[2021-10-02] MEDS: Lactobacillus 1 EACH CAP.SPRINK PO SCH (08:16)
[2021-10-02] MEDS: Furosemide 40 MG TABLET PO SCH (08:16)
[2021-10-02] MEDS: Nystatin SUSP 5 ML UD.LIQ PO SCH ×4 (08:16→20:31)
[2021-10-02] MEDS: cefTRIAXone 1,000 MG in 0.9 % Sodium Chloride 10 ML IVP SCH (08:16)
[2021-10-02] MEDS: Gabapentin 100 MG CAPSULE PO SCH ×3 (08:16→20:32)
[2021-10-02] MEDS: polyethylene glycoL 3350 17 GM POWD.PACK PO SCH (08:25)
[2021-10-02] MEDS: Budesonide/Formoterol 160/4.5 1 PUFF INH IH SCH ×2 (09:46→22:29)
[2021-10-02] MEDS: Melatonin 3 MG TABLET PO PRN (20:32)
[2021-10-03] MEDS: Sennosides/Docusate Sodium TABLET PO SCH ×2 (08:56→20:40)
[2021-10-03] MEDS: Lactobacillus 1 EACH CAP.SPRINK PO SCH (08:57)
[2021-10-03] MEDS: Gabapentin 100 MG CAPSULE PO SCH ×3 (08:58→20:40)
[2021-10-03] MEDS: Ascorbic Acid 500 MG TABLET PO SCH (08:58)
[2021-10-03] MEDS: Furosemide 40 MG TABLET PO SCH (08:59)
[2021-10-03] MEDS: Nystatin SUSP 5 ML UD.LIQ PO SCH ×4 (09:00→20:41)
[2021-10-03] MEDS: cefTRIAXone 1,000 MG in 0.9 % Sodium Chloride 10 ML IVP SCH (09:01)
[2021-10-03] MEDS: polyethylene glycoL 3350 17 GM POWD.PACK PO SCH (09:02)
[2021-10-03] MEDS: Budesonide/Formoterol 160/4.5 1 PUFF INH IH SCH ×2 (10:44→21:39)
[2021-10-03] MEDS: *HR* OxyCODONE/APAP 7.5/325 TABLET PO PRN ×2 (10:58→20:40)
[2021-10-03] MEDS: Melatonin 3 MG TABLET PO PRN (20:40)
[2021-10-04] MEDS: *HR* OxyCODONE/APAP 7.5/325 TABLET PO PRN ×2 (04:42→21:36)
[2021-10-04] MEDS: Budesonide/Formoterol 160/4.5 1 PUFF INH IH SCH ×2 (07:41→22:01)
[2021-10-04] MEDS: cefTRIAXone 1,000 MG in 0.9 % Sodium Chloride 10 ML IVP SCH (08:40)
[2021-10-04] MEDS: Metoprolol XL (24 HR) Succ 25 MG TAB.ER.24H PO SCH (08:45)
[2021-10-04] MEDS: Nystatin SUSP 5 ML UD.LIQ PO SCH ×4 (08:45→21:36)
[2021-10-04] MEDS: Sennosides/Docusate Sodium TABLET PO SCH ×2 (08:45→21:36)
[2021-10-04] MEDS: Lactobacillus 1 EACH CAP.SPRINK PO SCH (08:45)
[2021-10-04] MEDS: Furosemide 40 MG TABLET PO SCH (08:46)
[2021-10-04] MEDS: Gabapentin 100 MG CAPSULE PO SCH ×3 (08:46→21:36)
[2021-10-04] MEDS: Ascorbic Acid 500 MG TABLET PO SCH (08:46)
[2021-10-04] MEDS: polyethylene glycoL 3350 17 GM POWD.PACK PO SCH (08:51)
[2021-10-04 09:47] LABS: Hematocrit 36.3 % (37.5-50.1); Mean Corpuscular HGB Conc 30.3 g/dL (31.6-35.5); Mean Corpuscular Hemoglobin 28.5 pg (28.0-33.3); Mean Platelet Volume 9.8 fL (9.4-12.4); Platelet Count 486 K/mcL (140-400); Red Blood Count 3.86 M/mcL (4.19-5.50); Red Cell Distribution Width 15.5 % (11.5-14.5); White Blood Count 9.2 K/mcL (4.3-11.1)
[2021-10-04 10:02] LABS: BUN/Creatinine Ratio 21 (6-26); Blood Urea Nitrogen 18 mg/dL (8-23); Calcium 9.3 mg/dL (8.6-10.3); Carbon Dioxide 26 mEq/L (23-29); Chloride 100 mEq/L (98-107); Glucose 170 mg/dL (70-105); Osmolality,Calculated 282 (280-300); Potassium 4.8 mEq/L (3.5-5.1); Sodium 133 mEq/L (136-145); eGFR For African Americans > 60 (> 60); eGFR For Non-African Americans > 60 (> 60)
[2021-10-04] MEDS: Melatonin 3 MG TABLET PO PRN (21:36)
[2021-10-05] MEDS: Metoprolol XL (24 HR) Succ 25 MG TAB.ER.24H PO SCH (09:37)
[2021-10-05] MEDS: Nystatin SUSP 5 ML UD.LIQ PO SCH ×4 (09:37→20:46)
[2021-10-05] MEDS: Lactobacillus 1 EACH CAP.SPRINK PO SCH (09:38)
[2021-10-05] MEDS: Gabapentin 100 MG CAPSULE PO SCH ×3 (09:38→20:45)
[2021-10-05] MEDS: Sennosides/Docusate Sodium TABLET PO SCH ×2 (09:38→20:46)
[2021-10-05] MEDS: Furosemide 40 MG TABLET PO SCH (09:38)
[2021-10-05] MEDS: Ascorbic Acid 500 MG TABLET PO SCH (09:38)
[2021-10-05] MEDS: polyethylene glycoL 3350 17 GM POWD.PACK PO SCH (09:39)
[2021-10-05] MEDS: Budesonide/Formoterol 160/4.5 1 PUFF INH IH SCH ×2 (09:50→22:05)
[2021-10-05] MEDS: *HR* OxyCODONE/APAP 7.5/325 TABLET PO PRN ×2 (14:25→23:14)
[2021-10-05] MEDS: Melatonin 3 MG TABLET PO PRN (20:45)
[2021-10-06 07:50] LABS: Hematocrit 31.9 % (37.5-50.1); Hemoglobin 9.7 g/dL (12.9-16.9); Mean Corpuscular HGB Conc 30.4 g/dL (31.6-35.5); Mean Corpuscular Volume 95.2 fL (83.0-100.0); Mean Platelet Volume 9.5 fL (9.4-12.4); Platelet Count 401 K/mcL (140-400); Red Blood Count 3.35 M/mcL (4.19-5.50); Red Cell Distribution Width 15.4 % (11.5-14.5); White Blood Count 8.4 K/mcL (4.3-11.1)
[2021-10-06 07:59] LABS: BUN/Creatinine Ratio 32 (6-26); Blood Urea Nitrogen 23 mg/dL (8-23); Calcium 8.9 mg/dL (8.6-10.3); Carbon Dioxide 26 mEq/L (23-29); Chloride 103 mEq/L (98-107); Glucose 143 mg/dL (70-105); Osmolality,Calculated 286 (280-300); Potassium 4.7 mEq/L (3.5-5.1); Sodium 135 mEq/L (136-145); eGFR For African Americans > 60 (> 60); eGFR For Non-African Americans > 60 (> 60)
[2021-10-06] MEDS: Ascorbic Acid 500 MG TABLET PO SCH (10:33)
[2021-10-06] MEDS: Metoprolol XL (24 HR) Succ 25 MG TAB.ER.24H PO SCH (10:33)
[2021-10-06] MEDS: Sennosides/Docusate Sodium TABLET PO SCH ×2 (10:33→20:41)
[2021-10-06] MEDS: Lactobacillus 1 EACH CAP.SPRINK PO SCH (10:34)
[2021-10-06] MEDS: Furosemide 40 MG TABLET PO SCH (10:34)
[2021-10-06] MEDS: Gabapentin 100 MG CAPSULE PO SCH ×3 (10:34→20:40)
[2021-10-06] MEDS: polyethylene glycoL 3350 17 GM POWD.PACK PO SCH (10:35)
[2021-10-06] MEDS: Nystatin SUSP 5 ML UD.LIQ PO SCH (10:35)
[2021-10-06] MEDS: Budesonide/Formoterol 160/4.5 1 PUFF INH IH SCH ×2 (11:50→21:16)
[2021-10-06] MEDS: *HR* OxyCODONE/APAP 7.5/325 TABLET PO PRN (18:51)
[2021-10-06] MEDS: Melatonin 3 MG TABLET PO PRN (20:40)
[2021-10-07] MEDS: *HR* OxyCODONE/APAP 7.5/325 TABLET PO PRN ×3 (01:14→21:57)
[2021-10-07] MEDS: Budesonide/Formoterol 160/4.5 1 PUFF INH IH SCH ×2 (09:17→21:44)
[2021-10-07] MEDS: Metoprolol XL (24 HR) Succ 25 MG TAB.ER.24H PO SCH (09:49)
[2021-10-07] MEDS: Furosemide 40 MG TABLET PO SCH (09:49)
[2021-10-07] MEDS: Sennosides/Docusate Sodium TABLET PO SCH ×2 (09:49→20:17)
[2021-10-07] MEDS: Gabapentin 100 MG CAPSULE PO SCH ×3 (09:50→20:17)
[2021-10-07] MEDS: Lactobacillus 1 EACH CAP.SPRINK PO SCH (09:50)
[2021-10-07] MEDS: Ascorbic Acid 500 MG TABLET PO SCH (09:50)
[2021-10-07] MEDS: polyethylene glycoL 3350 17 GM POWD.PACK PO SCH (09:53)
[2021-10-07] MEDS: Melatonin 3 MG TABLET PO PRN (20:17)
[2021-10-08] MEDS: *HR* OxyCODONE/APAP 7.5/325 TABLET PO PRN ×2 (04:57→23:30)
[2021-10-08] MEDS: Metoprolol XL (24 HR) Succ 25 MG TAB.ER.24H PO SCH (07:39)
[2021-10-08] MEDS: Ascorbic Acid 500 MG TABLET PO SCH (07:39)
[2021-10-08] MEDS: Sennosides/Docusate Sodium TABLET PO SCH ×2 (07:39→20:31)
[2021-10-08] MEDS: Gabapentin 100 MG CAPSULE PO SCH ×3 (07:39→20:31)
[2021-10-08] MEDS: Lactobacillus 1 EACH CAP.SPRINK PO SCH (07:40)
[2021-10-08] MEDS: Furosemide 40 MG TABLET PO SCH (07:40)
[2021-10-08] MEDS: polyethylene glycoL 3350 17 GM POWD.PACK PO SCH (07:41)
[2021-10-08] MEDS: Budesonide/Formoterol 160/4.5 1 PUFF INH IH SCH ×2 (08:57→21:58)
[2021-10-08] MEDS: Ondansetron ODT 4 MG TAB.RAPDIS SL PRN (16:55)
[2021-10-08] MEDS: Melatonin 3 MG TABLET PO PRN (20:31)
[2021-10-09] MEDS: *HR* OxyCODONE/APAP 7.5/325 TABLET PO PRN ×2 (06:51→15:53)
[2021-10-09] MEDS: Budesonide/Formoterol 160/4.5 1 PUFF INH IH SCH ×2 (09:14→21:50)
[2021-10-09] MEDS: Lactobacillus 1 EACH CAP.SPRINK PO SCH (10:14)
[2021-10-09] MEDS: Sennosides/Docusate Sodium TABLET PO SCH ×2 (10:14→20:32)
[2021-10-09] MEDS: Ascorbic Acid 500 MG TABLET PO SCH (10:14)
[2021-10-09] MEDS: Gabapentin 100 MG CAPSULE PO SCH ×3 (10:15→20:32)
[2021-10-09] MEDS: polyethylene glycoL 3350 17 GM POWD.PACK PO SCH (10:15)
[2021-10-09] MEDS: Metoprolol XL (24 HR) Succ 25 MG TAB.ER.24H PO SCH (10:15)
[2021-10-09] MEDS: Furosemide 40 MG TABLET PO SCH (10:16)
[2021-10-10] MEDS: *HR* OxyCODONE/APAP 7.5/325 TABLET PO PRN (00:26)
[2021-10-10] MEDS: Melatonin 3 MG TABLET PO PRN (00:26)
[2021-10-10 05:22] LABS: Basophils # 0.2 K/mcL (0.0-0.2); Basophils % 1.9 %; Eosinophils % 0.2 %; Hematocrit 33.2 % (37.5-50.1); Hemoglobin 10.2 g/dL (12.9-16.9); Immature Granulocytes % 1.5 % (0-4); Lymphocytes # 1.5 K/mcL (0.6-4.6); Lymphocytes % 14.5 %; Mean Corpuscular HGB Conc 30.7 g/dL (31.6-35.5); Mean Corpuscular Hemoglobin 28.6 pg (28.0-33.3); Mean Platelet Volume 9.3 fL (9.4-12.4); Monocytes # 1.4 K/mcL (0.0-1.3); Monocytes % 13.9 %; Neutrophils # 6.9 K/mcL (1.6-8.9); Platelet Count 314 K/mcL (140-400); Red Blood Count 3.57 M/mcL (4.19-5.50); Red Cell Distribution Width 15.5 % (11.5-14.5); White Blood Count 10.2 K/mcL (4.3-11.1)
[2021-10-10 05:58] LABS: Alanine Aminotransferase 65 Units/L (7-52); Albumin 3.5 g/dL (3.5-5.7); Albumin/Globulin Ratio 1.2 (1.1-2.2); Alkaline Phosphatase 140 Units/L (34-104); Aspartate Amino Transferase 46 Units/L (13-39); BUN/Creatinine Ratio 29 (6-26); Bilirubin,Total 0.5 mg/dL (0.3-1.0); Blood Urea Nitrogen 22 mg/dL (8-23); Calcium 9.6 mg/dL (8.6-10.3); Carbon Dioxide 27 mEq/L (23-29); Chloride 101 mEq/L (98-107); Globulin 2.9 g/dL (2.4-3.5); Glucose 143 mg/dL (70-105); Osmolality,Calculated 284 (280-300); Sodium 134 mEq/L (136-145); Total Protein 6.4 g/dL (6.4-8.9); eGFR For African Americans > 60 (> 60); eGFR For Non-African Americans > 60 (> 60)
[2021-10-10] MEDS: Gabapentin 100 MG CAPSULE PO SCH ×3 (07:59→20:25)
[2021-10-10] MEDS: Metoprolol XL (24 HR) Succ 25 MG TAB.ER.24H PO SCH (07:59)
[2021-10-10] MEDS: Lactobacillus 1 EACH CAP.SPRINK PO SCH (07:59)
[2021-10-10] MEDS: Sennosides/Docusate Sodium TABLET PO SCH ×2 (07:59→20:25)
[2021-10-10] MEDS: Furosemide 40 MG TABLET PO SCH (07:59)
[2021-10-10] MEDS: polyethylene glycoL 3350 17 GM POWD.PACK PO SCH (08:00)
[2021-10-10] MEDS: Ascorbic Acid 500 MG TABLET PO SCH (08:00)
[2021-10-10] MEDS: Budesonide/Formoterol 160/4.5 1 PUFF INH IH SCH ×2 (09:57→22:48)
[2021-10-10] MEDS ORDERED: Hyoscyamine SL 0.125 MG TAB.SUBL SL PRN (13:53)
[2021-10-11] MEDS: Melatonin 3 MG TABLET PO PRN ×2 (00:28→20:48)
[2021-10-11] MEDS: *HR* OxyCODONE/APAP 7.5/325 TABLET PO PRN ×2 (00:28→20:48)
[2021-10-11] MEDS: polyethylene glycoL 3350 17 GM POWD.PACK PO SCH (10:11)
[2021-10-11] MEDS: Sennosides/Docusate Sodium TABLET PO SCH ×2 (10:11→20:40)
[2021-10-11] MEDS: Metoprolol XL (24 HR) Succ 25 MG TAB.ER.24H PO SCH (10:12)
[2021-10-11] MEDS: Ascorbic Acid 500 MG TABLET PO SCH (10:12)
[2021-10-11] MEDS: Gabapentin 100 MG CAPSULE PO SCH ×3 (10:12→20:40)
[2021-10-11] MEDS: Furosemide 40 MG TABLET PO SCH (10:12)
[2021-10-11] MEDS: Lactobacillus 1 EACH CAP.SPRINK PO SCH (10:12)
[2021-10-11] MEDS: Budesonide/Formoterol 160/4.5 1 PUFF INH IH SCH ×2 (10:13→22:57)
[2021-10-12 06:50] VITALS: BP 106/72; PULSE 106; TEMP 97.4; O2SAT 99
[2021-10-12] MEDS: Ascorbic Acid 500 MG TABLET PO SCH (08:36)
[2021-10-12] MEDS: Metoprolol XL (24 HR) Succ 25 MG TAB.ER.24H PO SCH (08:36)
[2021-10-12] MEDS: Furosemide 40 MG TABLET PO SCH (08:36)
[2021-10-12] MEDS: Sennosides/Docusate Sodium TABLET PO SCH (08:36)
[2021-10-12] MEDS: Lactobacillus 1 EACH CAP.SPRINK PO SCH (08:36)
[2021-10-12] MEDS: Gabapentin 100 MG CAPSULE PO SCH (08:36)
[2021-10-12] MEDS: polyethylene glycoL 3350 17 GM POWD.PACK PO SCH (08:37)
[2021-10-12] MEDS: Budesonide/Formoterol 160/4.5 1 PUFF INH IH SCH (09:50)
[2021-10-12 09:53] VITALS: RESP 18
== END 2021-10-12 13:06 | disposition hospice, home (50) | DRG 593 ==
LOC: INPPIK 20:27
PROVIDERS: ADMIT Internal Medicine; ATTEND Internal Medicine